=== PATIENT | male | born 1940 | race African-American/Black ===

== ENCOUNTER 2019-02-14 03:25 | Emergency (ER) | payer MEDICARE, OTHER ==
[~2019-02-14] VITALS: Ht 177.8 cm; Wt 77.1 kg
[~2019-02-14 03:25] MED LIST: ANUSOL-HC CREAM30 GM RECTAL; ZOFRAN ODT4 MG ORAL
[2019-02-14] MEDS ORDERED: DONEPEZIL HCL10 M2 ORAL (03:32)
[2019-02-14] MEDS ORDERED: ASPIR 8181 MG ORAL (03:32)
[2019-02-14] MEDS ORDERED: HYDRALAZINE HCL50 MG ORAL (03:32)
[2019-02-14] MEDS ORDERED: NOVOLOG100 UNITS1 (03:32)
[2019-02-14] MEDS ORDERED: AMLODIPINE BESY10 MG ORAL (03:32)
[2019-02-14] MEDS ORDERED: CHOLECALCIFEROL1 G1 MC (03:32)
[2019-02-14] MEDS ORDERED: DOCUSATE SODIU100 MG ORAL (03:32)
[2019-02-14 03:35] VITALS: BP 150/77
--- NOTE | 2019-02-14 03:35 | NUR ---
ED Nurse Note: Pt brought in from home by [facility] for c/o nausea, vomiting and diarrhea. Per pt pt had multiple episodes of vomiting since 1200 yesterday and had an episode of diarrhea prior to arrival. Pt is aaox4, breathing is normal and unlabored. Noted pt uncontrollably shaking. Pt denies pain at this time. Pt placed on library monitor and put into hospital gown. Will continue to monitor.
--- NOTE | 2019-02-14 03:40 | NUR ---
ED Nurse Note: ERMD at bedside. Pt is a hard stick, ERMD to place EJ line.
[2019-02-14] MEDS ORDERED: Acetaminophen 500mg (ES) tab ORAL ONE (03:45)
--- NOTE | 2019-02-14 03:51 | Emergency Room Report ---
History of Present Illness General Chief Complaint: Abdominal Pain Source: Patient Present Illness HPI Is a 78-year-old male with history of high blood pressure, diabetes, renal failure status post kidney transplant 2013. He presents with chief complaint of altered mental status with nausea vomiting and diarrhea. Onset around noon. His said he was doing well after he ate breakfast without any problem. Around noon he all of a sudden got sick. He has fever and chills. He has nausea vomiting and diarrhea. Decreased mentation. Decreased appetite. Continue to get worse so she called 911 tonight. Vomiting is nonbloody nonbilious. He is checking. No other complaint. Allergies: Coded Allergies: No Known Allergies (Unverified , 02/14/19) Patient History Past Medical History: see triage record, old chart reviewed, DM, HTN, renal disease Past Surgical History: other - Transplant, kidney Pertinent Family History: none Social History: Denies: smoking Immunizations: other Reviewed Nursing Documentation: PMH: Agreed; PSxH: Agreed Nursing Documentation-PMH Past Medical History: No History, Except For Hx Hypertension: Yes Hx Diabetes: Yes Hx Dialysis: Yes - R KIDNEY TRANSPLANT 4 WKS AGO AT [facility] Review of Systems Constitutional: Reports: fever, malaise, weakness Eye: Denies: eye pain, blurred vision ENT: Denies: ear pain, nose congestion, throat swelling Respiratory: Denies: cough, shortness of breath Cardiovascular: Denies: chest pain, palpitations Gastrointestinal: Reports: abdominal pain, diarrhea, nausea, vomiting Musculoskeletal: Denies: back pain, joint pain Skin: Denies: rash Neurological: Denies: headache, numbness Endocrine: Denies: increased thirst, increased urine Hematologic/Lymphatic: Denies: easy bruising All Other Systems: negative except mentioned in HPI Physical Exam Vital Signs Date Time Temp Pulse Resp B/P (MAP) Pulse Ox O2 Delivery O2 Flow Rate FiO2 02/14/19 03:26 99.5 98 14 150/77 (101) 98 Room Air Vitals with low-grade fever Sp02 EP Interpretation: reviewed, normal General Appearance: well appearing, other - Ill-appearing Head: normocephalic, atraumatic Eyes: bilateral eye PERRL, bilateral eye EOMI ENT: hearing grossly normal, normal pharynx Neck: full range of motion, supple, no meningismus Respiratory: chest non-tender, lungs clear, normal breath sounds Cardiovascular #1: regular rate, rhythm, no murmur Gastrointestinal: normal bowel sounds, non tender, no mass, no organomegaly, no bruit, non-distended Musculoskeletal: back normal, normal range of motion Neurologic: other - Rigors Psychiatric: mood/affect normal Procedures Critical Care Time Critical Care Time Critical care is mandated in this patient who presented with sepsis from pneumonia. Patient require my urgent intervention to attenuate the risks of metabolic collapse which may lead to cardiovascular collapse and . Critical care time is 35 minutes excluding any reportable procedure. Critical care time included evaluation, multiple reevaluation, looking at old charts, interpreting laboratory and diagnostic data, discussing case with patient and family and consultants, and charting. Medical Decision Making Diagnostic Impression: Primary Impression: Sepsis Qualified Codes: A41.9 - Sepsis, unspecified organism Additional Impressions: Pneumonia Qualified Codes: J18.9 - Pneumonia, unspecified organism NERY (acute kidney injury) Acute metabolic encephalopathy ER Course This patient presents with severe sepsis secondary to pneumonia. Because of his immunosuppressed state, I gave him wide spectrum antibiotics to cover for hospital-acquired pneumonia. Patient improved after IV fluid and Tylenol. Will admit patient for IV antibiotics. I discussed the case with Dr. Rodrigues who will admit for Dr. Cano. Sepsis reevaluation Signs: Heart rate 100, respiratory rate 15, pulse oxing 97% on 2 L, blood pressure 122/60 Mental status: More alert Cardiovascular: Regular rate and rhythm Lungs: Better aeration and movement. Rhonchi at bases Abdomen: Soft Ext: No edema Skin: No mottling EKG Diagnostic Results Rate: normal Rhythm: NSR ST Segments: no acute changes Rhythm Strip Diag. Results EP Interpretation: yes Rate: 100 Rhythm: NSR, no PVC's, no ectopy Chest X-Ray Diagnostic Results Chest X-Ray Diagnostic Results : Chest X-Ray Ordered: Yes # of Views/Limited/Complete: 1 View Indication: Shortness of Breath EP Interpretation: Yes Interpretation: no effusion, no pneumothorax, other - bilateral lower lobes infiltrates Impression: Other - lower lobe infiltrates Electronically Signed by: Casper Herrera MD CT/MRI/US Diagnostic Results CT/MRI/US Diagnostic Results : Imaging Test Ordered: CT abdomen and pelvis Impression Read by radiologist. Bilateral lower lobe infiltrates. Moderate colonic diverticulosis. Degenerative changes of the spine. Last Vital Signs Date Time Temp Pulse Resp B/P (MAP) Pulse Ox O2 Delivery O2 Flow Rate FiO2 02/14/19 03:26 99.5 98 14 150/77 (101) 98 Room Air Status: improved Disposition: ADMITTED INPATIENT Condition: Serious Casper Herrera MD Feb 14, 2019 03:51
[2019-02-14 04:11] LABS: BASOPHILS % (AUTO) 1.2 % (0.0-2.0); EOSINOPHILS % (AUTO) 1.3 % (0.0-3.0); HEMATOCRIT 56.3 % (42.0-52.0); LYMPHOCYTES % (AUTO) 12.4 % (20.0-45.0); MEAN CORPUSCULAR VOLUME 80 FL (80-99); MONOCYTES % (AUTO) 4.7 % (1.0-10.0); NEUTROPHILS % (AUTO) 80.4 % (45.0-75.0); PLATELET COUNT 175 K/UL (150-450); RED BLOOD COUNT 7.06 M/UL (4.70-6.10); WHITE BLOOD COUNT 11.9 K/UL (4.8-10.8)
[2019-02-14 04:14] LABS: HEMOGLOBIN 18.4 G/DL (14.2-18.0)
[2019-02-14 04:27] LABS: ANION GAP 11 mmol/L (5-15); BLOOD UREA NITROGEN 15 mg/dL (7-18); CALCIUM 10.1 MG/DL (8.5-10.1); CARBON DIOXIDE 24 MMOL/L (21-32); CHLORIDE 99 MMOL/L (98-107); CREATININE 1.9 MG/DL (0.55-1.30); POTASSIUM 4.9 MMOL/L (3.5-5.1); SODIUM 134 MMOL/L (136-145)
[2019-02-14 04:40] LABS: ALANINE AMINOTRANSFERASE 38 U/L (12-78); ALBUMIN 3.6 G/DL (3.4-5.0); ALBUMIN/GLOBULIN RATIO 0.7 (1.0-2.7); ALKALINE PHOSPHATASE 96 U/L (46-116); ASPARTATE AMINO TRANSFERASE 34 U/L (15-37); BILIRUBIN,TOTAL 0.5 MG/DL (0.2-1.0); CKMB 0.5 NG/ML (0.0-3.6)
--- NOTE | 2019-02-14 04:40 | NUR ---
ED Nurse Note: Urine collected from arias, sent to lab.
[2019-02-14] MEDS ORDERED: Cefepime HCl 1 GM in D5W 55 ML IVPB ONE (04:45)
--- NOTE | 2019-02-14 04:48 | NUR ---
ED Nurse Note: Pt taken to CT.
--- NOTE | 2019-02-14 05:11 | NUR ---
ED Nurse Note: Pt returned from CT.
[2019-02-14 05:34] LABS: APPEARANCE,URINE CLEAR; BILIRUBIN, URINE NEGATIVE (NEGATIVE); GLUCOSE, URINE (UA) NEGATIVE (NEGATIVE); KETONES,URINE 1+ (NEGATIVE); LEUKOCYTE ESTERASE ,URINE NEGATIVE (NEGATIVE); NITRITE,URINE NEGATIVE (NEGATIVE); PH,URINE 6 (4.5-8.0); PROTEIN,URINE 3+ (NEGATIVE); UROBILINOGEN,URINE NORMAL MG/DL (0.0-1.0)
[2019-02-14 05:37] LABS: COLOR,URINE PALE YELLOW
--- NOTE | 2019-02-14 05:50 | NUR ---
ED Nurse Note: Repeat lactic sent to lab, drawn by RN.
--- NOTE | 2019-02-14 06:00 | NUR ---
ED Nurse Note: Pt resting comfortably in bed at this time. VSS. Pt at bedside. Will continue to monitor.
--- NOTE | 2019-02-14 06:02 | Diagnostic Imaging Report ---
Indication: Abdominal pain Technique: Continuous helical transaxial imaging of the abdomen and pelvis was obtained from the lung bases to the pubic symphysis. No intravenous contrast was administered. Coronal 2-D reformats were also obtained. Automatic Exposure Control was utilized. Total Dose length Product (DLP): 1581.[address] Dose Index Volume (CTDIvol): 25.5 mGy Comparison: none Findings: The exam is limited by artifact. Lung bases are grossly clear. There is a hypodensities within the liver nonspecific which could be cystic or solid. There is a calcification in the area of the falciform ligament. Kidneys are atrophic. Diverticula noted throughout the colon. There is a right pelvic renal allograft. Aortoiliac calcifications are moderate in degree. There is no ascites. Godwin catheter noted in good position. There is a left inguinal hernia containing fat. Surgical clips in the right inguinal region/upper scrotum noted. Mild thickening of the wall the rectum noted. Moderate stool retention noted. IMPRESSION: No acute findings identified. Hypodensities in the liver nonspecific. This could be cystic or solid and require further evaluation. Transplanted right renal allograft. Diverticulosis of the colon. Suspected proctitis with stool Atherosclerotic vascular disease. Left inguinal hernia containing fat. [facility] has communicated the preliminary results to the Emergency Department. Their findings are largely concordant with this report. The CT scanner at [facility] is accredited by the [employer] and the scans are performed using dose optimization techniques as appropriate to a performed exam including Automatic Exposure control.
[2019-02-14 06:19] VITALS: BP 122/60
[2019-02-14] MEDS ORDERED: Oseltamivir 75mg cap ORAL ONE (06:45)
--- NOTE | 2019-02-14 06:50 | NUR ---
CALLED [facility] INTRUCTED TO CALL BACK AFTER 730 AM
--- NOTE | 2019-02-14 07:12 | NUR ---
HAND-OFF: Report given to RENUKA Malcolm and endorsed care.
--- NOTE | 2019-02-14 07:55 | NUR ---
ED Nurse Note: PT RESTING ON GURNEY WITH SLIGHT CHILLS. MEDS GIVEN. FAMILY MEMBER AND DR CHINCHILLA AT THE BED SIDE.
[2019-02-14] MEDS ORDERED: LIPITOR10 MG ORAL (08:11)
[2019-02-14] MEDS ORDERED: SENNA LAXATIVE8.6 MG PO (08:11)
[2019-02-14] MEDS ORDERED: VITAMIN D35000 UNI2 PO (08:11)
[2019-02-14] MEDS ORDERED: PREDNISONE5 M3 PO (08:11)
[2019-02-14] MEDS ORDERED: LANTUS SOL100 UNIT/1 SUBQ (08:11)
[2019-02-14] MEDS ORDERED: MULTIVITAMINS1 EAC2 ORAL (08:11)
[2019-02-14] MEDS ORDERED: FLOMAX0.4 MG ORAL (08:11)
[2019-02-14] MEDS ORDERED: TRAMADOL HCL50 MG ORAL (08:11)
[2019-02-14] MEDS ORDERED: OMEPRAZOLE40 M1 ORAL (08:11)
[2019-02-14 08:27] VITALS: BP 126/75
[2019-02-14] MEDS ORDERED: Azithromycin 500 MG in D5W 275 ML IVPB ONE (08:45)
[2019-02-14] MEDS ORDERED: Piperacillin/Tazobactam 3.375 GM in NS 110 ML IVPB ONE (08:45)
--- NOTE | 2019-02-14 08:53 | History and Physical ---
History of Present Illness General Date patient seen: Feb 14, 2019 Time patient seen: 08:00 Reason for Hospitalization: Abdominal Pain Present Illness HPI 78-year-old male with history of high blood pressure, diabetes, renal failure status post kidney transplant 2014 at [facility]. He presents with chief complaint of altered mental status with nausea vomiting and diarrhea. Onset around noon. His said he was doing well after he ate breakfast without any problem. Around noon he all of a sudden got sick. He has fever and chills. He has nausea vomiting and diarrhea. Decreased mentation. Decreased appetite. Continue to get worse so she called 911 tonight. Vomiting is nonbloody nonbilious. was recently sick. History obtained from as patient altered during my exam. says patient denied chest pain or sob. He was hospitalized in [place] for bradycardia and hypotension in December 2018. 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 [place] ROS: unobtainable form patient due to AMS Allergies: Coded Allergies: No Known Allergies (Unverified , 02/14/19) Medication History Scheduled Amlodipine Besylate* (Amlodipine Besylate*), 10 MG ORAL DAILY, (Reported) Aspirin* (Aspir 81*), 81 MG ORAL DAILY, (Reported) Atorvastatin Calcium* (Lipitor*), 10 MG ORAL DAILY, (Reported) Cholecalciferol (Vitamin D3) (Vitamin D3), 5,000 UNIT PO DAILY, (Reported) Docusate Sodium* (Docusate Sodium*), 100 MG ORAL THREE TIMES A DAY, (Reported) Donepezil Hcl* (Donepezil Hcl*), 10 MG ORAL DAILY, (Reported) Hydralazine Hcl* (Hydralazine Hcl*), 50 MG ORAL EVERY 8 HOURS, (Reported) Insulin Glargine (Lantus), 40 SUBQ DAILY, (Reported) Multivitamins* (Multivitamins*), 1 TAB ORAL DAILY, (Reported) Omeprazole (Omeprazole), 40 MG ORAL DAILY, (Reported) Prednisone (Prednisone), 5 MG PO DAILY, (Reported) Sennosides (Senna Laxative), 8.6 MG PO Q12HR, (Reported) Tamsulosin HCl (Flomax), 0.4 MG ORAL TWICE A DAY, (Reported) Scheduled PRN Hydrocortisone (Hydrocortisone), 1 APPLIC RECTAL FOUR TIMES A DAY PRN for For Pain Ondansetron Odt* (Zofran Odt*), 4 MG ORAL Q6H PRN for Nausea & Vomiting Tramadol Hcl* (Ultram*), 50 MG ORAL Q6H PRN for For Pain, (Reported) Miscellaneous Medications Cholecalciferol (Vitamin D3) (Cholecalciferol), 1 GM MC, (Reported) Insulin Aspart (Novolog Flexpen), (Reported) Patient History Healthcare decision maker Resuscitation status Advanced Directive on File Physical Exam Physical Exam Narrative General Appearance: well appearing, Ill-appearing, mask on Head: normocephalic, atraumatic Eyes: bilateral eye PERRL, bilateral eye EOMI ENT: hearing grossly normal, normal pharynx Neck: full range of motion, supple, no meningismus Respiratory: chest non-tender, lungs clear, normal breath sounds Cardiovascular : regular rate, rhythm, no murmur, ext no edema, clammy Gastrointestinal: normal bowel sounds, non tender, no mass, no organomegaly, no bruit, non-distended Musculoskeletal: back normal, normal range of motion Neurologic: responsive to verbal commands, lethargic, grossly normal, moving all extremities Psychiatric: mood/affect normal Last 24 Hour Vital Signs Date Time Temp Pulse Resp B/P (MAP) Pulse Ox O2 Delivery O2 Flow Rate FiO2 02/14/19 08:27 102.6 108 18 126/75 96 Bi-pap 02/14/19 06:19 102.6 104 24 122/60 100 Room Air 02/14/19 03:35 99.5 99 14 150/77 98 Room Air 02/14/19 03:35 98 14 Room Air 02/14/19 03:26 99.5 98 14 150/77 (101) 98 Room Air Intake and Output 02/13/19 02/14/19 19:00 07:00 Output Total 400 ml Balance -400 ml Output Urine Total 400 ml Laboratory Tests Test 02/14/19 04:04 02/14/19 04:35 02/14/19 06:00 White Blood Count 11.9 K/UL (4.8-10.8) H Red Blood Count 7.06 M/UL (4.70-6.10) H Hemoglobin 18.4 G/DL (14.2-18.0) *H Hematocrit 56.3 % (42.0-52.0) H Mean Corpuscular Volume 80 FL (80-99) Mean Corpuscular Hemoglobin 26.0 PG (27.0-31.0) L Mean Corpuscular Hemoglobin Concent 32.6 G/DL (32.0-36.0) Red Cell Distribution Width 13.0 % (11.6-14.8) Platelet Count 175 K/UL (150-450) Mean Platelet Volume 8.4 FL (6.5-10.1) Neutrophils (%) (Auto) 80.4 % (45.0-75.0) H Lymphocytes (%) (Auto) 12.4 % (20.0-45.0) L Monocytes (%) (Auto) 4.7 % (1.0-10.0) Eosinophils (%) (Auto) 1.3 % (0.0-3.0) Basophils (%) (Auto) 1.2 % (0.0-2.0) Prothrombin Time 10.4 SEC (9.30-11.50) Prothromb Time International Ratio 1.0 (0.9-1.1) Activated Partial Thromboplast Time 30 SEC (23-33) Sodium Level 134 MMOL/L (136-145) L Potassium Level 4.9 MMOL/L (3.5-5.1) Chloride Level 99 MMOL/L (98-107) Carbon Dioxide Level 24 MMOL/L (21-32) Anion Gap 11 mmol/L (5-15) Blood Urea Nitrogen 15 mg/dL (7-18) Creatinine 1.9 MG/DL (0.55-1.30) H Estimat Glomerular Filtration Rate mL/min (>60) Glucose Level 174 MG/DL (74-106) H Lactic Acid Level 4.10 mmol/L (0.4-2.0) H 1.00 mmol/L (0.66-2.22) Calcium Level 10.1 MG/DL (8.5-10.1) Total Bilirubin 0.5 MG/DL (0.2-1.0) Aspartate Amino Transf (AST/SGOT) 34 U/L (15-37) Alanine Aminotransferase (ALT/SGPT) 38 U/L (12-78) Alkaline Phosphatase 96 U/L (46-116) Creatine Kinase MB 0.5 NG/ML (0.0-3.6) Troponin I 0.000 ng/mL (0.000-0.056) Total Protein 8.9 G/DL (6.4-8.2) H Albumin 3.6 G/DL (3.4-5.0) Globulin 5.3 g/dL Albumin/Globulin Ratio 0.7 (1.0-2.7) L Urine Color Pale yellow Urine Appearance Clear Urine pH 6 (4.5-8.0) Urine Specific [place] 1.010 (1.005-1.035) Urine Protein 3+ (NEGATIVE) H Urine Glucose (UA) Negative (NEGATIVE) Urine Ketones 1+ (NEGATIVE) H Urine Blood 3+ (NEGATIVE) H Urine Nitrite Negative (NEGATIVE) Urine Bilirubin Negative (NEGATIVE) Urine Urobilinogen Normal MG/DL (0.0-1.0) Urine Leukocyte Esterase Negative (NEGATIVE) Urine RBC 2-4 /HPF (0 - 0) H Urine WBC 0-2 /HPF (0 - 0) Urine Squamous Epithelial Cells Few /LPF (NONE/OCC) Urine Bacteria None /HPF (NONE) Microbiology Date/Time Source Procedure Growth Status 02/14/19 06:05 Nasal Nares - Final Complete 02/14/19 06:05 Nasal Nares - Final Complete Height (Feet): 5 Height (Inches): 10.00 Weight (Pounds): 170 Medications Current Medications Medications (Trade) Dose Ordered Sig/Rohini Route PRN Reason Start Time Stop Time Status Last Admin Dose Admin Azithromycin 500 mg/Dextrose 275 ml @ 275 mls/hr ONCE ONCE IVPB 02/14/19 08:45 02/14/19 09:44 Piperacillin Sod/ Tazobactam Sod 3.375 gm/Sodium Chloride 110 ml @ 27.5 mls/hr ONCE ONCE IVPB 02/14/19 08:45 02/14/19 12:44 Sodium Chloride 1,000 ml @ 200 mls/hr Q5H IV 02/14/19 08:15 03/16/19 08:14 12/23/19 08:14 Objective Narrative CXR: bilateral lower lobe infiltrates EKG: personally interpreted by me: SR with first degree AV block, left axis deviation, no acute st-t changes Ct abdomen pelvis: No acute findings identified. Hypodensities in the liver nonspecific. This could be cystic or solid and require further evaluation. Transplanted right renal allograft. Diverticulosis of the colon. Suspected proctitis with stool Atherosclerotic vascular disease. Left inguinal hernia containing fat. Assessment/Plan Problem List: (1) Severe sepsis ICD Codes: A41.9 - Sepsis, unspecified organism; R65.20 - Severe sepsis without septic shock SNOMED: 47580390 (2) Influenza ICD Codes: J11.1 - Influenza due to unidentified influenza virus with other respiratory manifestations SNOMED: 4823168 (3) Renal transplant recipient ICD Codes: Z94.0 - Kidney transplant status SNOMED: 434074515 (4) Acute metabolic encephalopathy ICD Codes: G93.41 - Metabolic encephalopathy SNOMED: 29115630, 994216563 (5) Nausea, vomiting, and diarrhea ICD Codes: R19.7 - Diarrhea, unspecified; R11.2 - Nausea with vomiting, unspecified SNOMED: 3426012 (6) NERY (acute kidney injury) ICD Codes: N17.9 - Acute kidney failure, unspecified SNOMED: 96288527, 4741586 Status: stable Assessment/Plan: Admit to telemetry d/w ER physician to initiate transfer to tertiary care center, preferably [facility] Zosyn, vancomycin, azithromycin and Tamiflu all renal dose prednisone 5 mg daily hold home bp medication pulmonary consult: Dr. Peralta ID: Dr. Worthy, Renal: Dr. Bocanegra insulin sliding scale check cortisol IVF Avoid nephrotoxic Meds, monitor cr. O2 as needed to keep o2 sat >92% check CK I spent 70 on this encounter, >50% spent on counselling and care coordination. Plan of care d/w and ED physicians. I spent an additional 35 minutes in reviewing old records and hospitalizations, labs and imagining. James Rodrigues M.D. Feb 14, 2019 08:53
[2019-02-14] MEDS ORDERED: Miralax 17gm pkt ORAL PRN (09:00)
[2019-02-14] MEDS ORDERED: HYDROmorphone 1mg/ml Carpuject IVP PRN (09:00)
[2019-02-14] MEDS ORDERED: Albuterol/Ipratropium 3ml neb HHN PRN (09:00)
[2019-02-14] MEDS ORDERED: Heparin 5000 units/ml inj SUBQ SCH (09:00)
--- NOTE | 2019-02-14 09:58 | NUR ---
ED Nurse Note: REPORT GIVEN TO DANIELLE GRAYSON OF [facility].
[2019-02-14] MEDS ORDERED: Vancomycin 750mg/D5W 275ml IVPB SCH ×2 (10:00)
--- NOTE | 2019-02-14 10:22 | NUR ---
ED Nurse Note: REPORT GIVEN TO CARMEN GRAYSON OF [facility].
--- NOTE | 2019-02-14 10:23 | NUR ---
ED Nurse Note: CALLED [facility] AND SPOKE WITH DONAL THAT ADMISSION IS CANCELLED AND PT IS GOING TO BE TRANSFERRED.
[2019-02-14] MEDS ORDERED: NovoLOG Insulin Flexpen SUBQ SCH (11:30)
--- NOTE | 2019-02-14 11:31 | NUR ---
ED Nurse Note:pt. given NS bolus per MD order due to hypotension
[2019-02-14 11:32] VITALS: BP 105/56
--- NOTE | 2019-02-14 12:13 | Diagnostic Imaging Report ---
Indication: Dyspnea Comparison: 01/15/2014 A single view chest radiograph was obtained. Findings: Cardiomediastinal appearance is within normal limits for age. The lungs are clear. Pulmonary vascularity is appropriate. The diaphragmatic contour is smooth and costophrenic angles are sharp. No pleural effusions are identified. The bones are osteopenic. Impression: No acute findings
[2019-02-14 12:27] VITALS: BP 105/56
--- NOTE | 2019-02-14 12:27 | NUR ---
ED Nurse Note: REPORT GIVEN TO MONTRELL GRAYSON OF [facility]. ALL BELONGINGS SENT.
== END 2019-02-14 12:27 | disposition short-term general hospital (02) ==
LOC: EDUNIT# 03:25 → EDBD 03:25 → EMR 03:53 → UNDOADMIN 04:49 → 2E 04:49 → EDBEDREQ 05:47 → EMR 12:27
DX: A41.9 Sepsis, unspecified organism (principal); J18.9 Pneumonia, unspecified organism; N17.9 Acute kidney failure, unspecified; G93.41 Metabolic encephalopathy; Z94.0 Kidney transplant status; K57.90 Diverticulosis of intestine, part unspecified, without perforation or abscess without bleeding; I12.9 Hypertensive chronic kidney disease with stage 1 through stage 4 chronic kidney disease, or unspecified chronic kidney disease; E11.22 Type 2 diabetes mellitus with diabetic chronic kidney disease; N18.9 Chronic kidney disease, unspecified
CPT/HCPCS: 36415; 71045; 74176; 80053; 81003; 82553; 83036; 83605; 84484; 85025; 85610; 85730; 86710; 87040; 87081; 93005; 96361; 96365; 96368; 99291; J0456; J0692; J1644; J1815; J1956; J2543; J3370